=== PATIENT | female | born 1945 | race Caucasian/White ===

== ENCOUNTER 2022-06-10 14:13 | Outpatient (CLI) | payer OTHER, SELFPAY ==
--- NOTE | ~2022-06-10 | DEXA_ITS ---
Bone Density Report Name: NOLBERTO WALSH Age: 77 Sex: Female Ethnicity: White Date of : 1945 Indication: postmenopausal; screening for osteoporosis; height loss; hysterectomy; Referring Provider: VICKIE PALUMBO Study: Bone densitometry was performed. Exam Date: June 10, 2022 Accession number: [id number] Bone Density: Region BMD T-score Z-score Classification AP Spine(L1-L4) 1.323 2.5 5.0 Normal Femoral Neck (Left) 0.837 -0.1 2.0 Normal Total Hip (Left) 0.976 0.3 2.1 Normal Femoral Neck (Right) 0.893 0.4 2.5 Normal Total Hip (Right) 1.007 0.5 2.4 Normal Total Hip Mean 0.992 0.4 2.3 Normal World Health Organization criteria for BMD impression classify patients as: Normal (T-score at or above -1.0), Osteopenia (T-score between -1.0 and -2.5), or Osteoporosis (T-score at or below -2.5). 10-year Fracture Risk: FRAX not reported because: All T-scores for Spine Total, Hip Total, Femoral Neck at or above -1.0 Clinical Information Provided by Patient: Has the following medical conditions: Hysterectomy Patient maximum height was 69 Menopause Age: 46 No regular weight bearing exercise Onset of menses at age 14 Number of children 1 Impression: The patient has normal bone mass. Discussion: BONE DENSITY IS ABOVE THE MINIMUM DESIRABLE LEVEL AT ALL SKELETAL SITES TESTED. This patient?s bone mineral density is above the minimum desirable level (T-score -1.0 or better) at all sites measured. The patient should follow a healthful lifestyle (good nutrition with adequate calcium and vitamin D, and appropriate weight-bearing exercise). Follow-Up: Consider repeating this study in 5 years or sooner if there is some new clinical indication. Reported by: TIANNA on 06/10/2022 2:46:00 PM. Reviewed, dictated and finalized at location [facility]
== END 2022-06-10 14:14 | disposition home or self-care (01) ==
LOC: ANHBRCTR 14:14
PROVIDERS: PCP Family Medicine; Visit Provider Family Medicine
DX: Z78.0 Asymptomatic menopausal state (principal)
CPT/HCPCS: 77080

== ENCOUNTER 2022-12-03 09:17 | Outpatient (CLI) | payer OTHER, SELFPAY ==
--- NOTE | ~2022-12-03 | XR_ITS ---
Lumbosacral Spine: AP and lateral views Clinical History: Pain Findings: There is mild levoscoliosis of the lumbar spine. No fracture identified. 5 mm retrolisthesi s of T12 over L1 noted. There is a 5 mm anterolisthesis of L4 over L5. There is moderate to advanced degenerative disc narrowing throughout the lumbar spine. There is moderate to advanced facet joint ar thropathy throughout the lumbar spine. The sacroiliac joints are normally outlined. Impression: Advanced degenerative spondylosis, as above. 5 mm retrolisthesis of T12 over L1. 5 mm anterolisthesis of L4 over L5. Reviewed, dictated and finalized at location M. Impression: Advanced degenerative spondylosis, as above. 5 mm retrolisthesis of T12 over L1. 5 mm anterolisthesis of L4 over L5.
== END 2022-12-03 09:18 | disposition home or self-care (01) ==
PROVIDERS: PCP Family Medicine; Visit Provider Family Medicine
DX: M47.816 Spondylosis without myelopathy or radiculopathy, lumbar region (principal)
CPT/HCPCS: 72100

== ENCOUNTER 2025-05-28 09:39 | Outpatient (CLI) | payer OTHER, SELFPAY ==
--- OUTSIDE RECORDS SUMMARY | 2024-03-28 07:34 | XMS_ITS ---
Author Organization [facility], Address [address] [address] Care Team Providers Care Reconditioning Associate Name Role Phone Ez Rosales Primary Care Provider Buck Street [facility] [phone] REASON FOR VISIT Rx for after surgery MEDICATIONS Medication SIG (Take, Route, Frequency, Duration) Notes Start Date End Date Status HYDROcodone-Acetaminophen 7.5-325 MG 1 tablet as needed Orally every 4-6 hrs for 7 days 03/28/2024 Active Encounters Encounter Location Date Provider Diagnosis [facility] [address] [address] 03/28/2024 Buck Botello PLAN OF TREATMENT Medication Medication Name Sig Start Date Stop Date Notes HYDROcodone-Acetaminophen 7.5-325 MG 1 tablet as needed Orally every 4-6 hrs for 7 days 03/28/2024
--- OUTSIDE RECORDS SUMMARY | 2024-03-31 09:34 | XMS_ITS ---
Author Organization [facility], [facility] Address [address] [facility] [address] [place] [address] Care Team Providers Care Fac Engineer Name Role Phone Ez Rosales Primary Care Provider Buck Street Unavailable [phone] Encounters Encounter Location Date Provider Diagnosis [facility], [address] [facility] [address] [place] [address] 03/31/2024 Buck Botello PLAN OF TREATMENT No Information
--- OUTSIDE RECORDS SUMMARY | 2024-04-03 02:36 | XMS_ITS ---
Author Organization [facility], [place] Address [address] [facility] [address] [place] [address] Care Team Providers Care English Composition Teacher Name Role Phone Ez Rosales Primary Care Provider Buck Street Unavailable [phone] REASON FOR VISIT Call back Encounters Encounter Location Date Provider Diagnosis [facility] [address] [facility] [address] [place] [address] 04/03/2024 Buck Botello PLAN OF TREATMENT No Information
--- OUTSIDE RECORDS SUMMARY | 2024-04-04 02:41 | XMS_ITS ---
Author Organization [facility], Address [address] [address] Care Team Providers Care Planning Technician Name Role Phone Ez Rosales Primary Care Provider Buck Street [facility] [phone] REASON FOR VISIT Rx MEDICATIONS Medication SIG (Take, Route, Frequency, Duration) Notes Start Date End Date Status HYDROcodone-Acetaminophen 7.5-325 MG 1 tablet as needed Orally every 4-6 hrs for 7 days 04/04/2024 Active Encounters Encounter Location Date Provider Diagnosis [facility] [address] [facility] [address] [place] [address] 04/04/2024 Buck Botello PLAN OF TREATMENT Medication Medication Name Sig Start Date Stop Date Notes HYDROcodone-Acetaminophen 7.5-325 MG 1 tablet as needed Orally every 4-6 hrs for 7 days 04/04/2024
--- OUTSIDE RECORDS SUMMARY | 2024-04-07 03:40 | XMS_ITS ---
Author Organization [facility], [place] Address [address] [address] [place] [address] Care Team Providers Care Manager Control Name Role Phone Ez Rosales Primary Care Provider Buck Street Unavailable [phone] ALLERGIES No Known Allergies RESULTS Component Value Reference Range Notes X ray : Lumbar Spine 3 views , AP, Lateral, Spot Reviewed date:04/07/2024 10:14:40 AM Interpretation:[id number] Performing Lab: Notes/Report: 938 REASON FOR REFERRAL Reason DIAGNOSES: s/p L2-4 LDL's, L4-5 wide decomp, L4-5 TLIF 3 times per week for 3 weeks eval and treat, exercise, modalities per therapist's discretion; HEP Referral [facility] Referring Provider First Name Buck Referring Provider Last Name Rosmery Referring Provider Speciality Orthopedic Surgery Referred Provider Specialty Physical The rapy Referral Priority Routine REASON FOR VISIT postop MEDICATIONS Medication SIG (Take, Route, Frequency, Duration) Notes Start Date End Date Status Aleve prn Not-Taking Advil Not-Taking Losartan Potassium A ctive Eye Drops vitamin Active Centrum Silver Activ e HYDROcodone-Acetaminoph en 5-325 MG 1 tablet as needed Orally every 4-6 hrs for 7 days 04/07/2024 Active VITAL SIGNS BMI 33.96 kg/m2 04/07/2024 Height 69 in 04/07/2024 Temperature 98.4 degrees Fahrenheit 04/07/20 24 Weight 230 lbs 04/07/2024 Encounters Encounter Location Date Provider Diagnosis [facility], [address] [facility] [address] [place] [address] 04/07/2024 Buck Botello Aftercare following surgery of the musculoskeletal system, NEC Z47.89 ; Arthrodesis status Z98.1 and Other low back pain M54.59 ASSESSMENTS Encounter Date Diagnosis Assessment Notes Treatment Notes Treatment Clinical Notes Section Notes 04/07/2024 Aftercare following surgery of the musculoskeletal system, NEC (ICD-10 - Z47.89) <b>IMPRESSION:</b > S/P LDL's and fusion <b>PLAN:</b> It is my recommendation that the patient switch to using a cane and ambulate as much as possible. She can also use a treadmill, elliptical, or stationary bike to improve strength and endurance. She was encouraged to walk every day. She will start outpatient PT to advance strength and conditioning. She will continue on [place] 5/325, but I explained to her this may be her last prescription of this medication. She will follow-up in 4-6 weeks. [facility] 04/07/2024 Arthrodesis status (ICD-10 - Z98.1) <b>IMPRESSION:</b > S/P LDL's and fusion <b>PLAN:</b> It is my recommendation that the patient switch to using a cane and ambulate as much as possible. She can also use a treadmill, elliptical, or stationary bike to improve strength and endurance. She was encouraged to walk every day. She will start outpatient PT to advance strength and conditioning. She will continue on [place] 5/325, but I explained to her this may be her last prescription of this medication. She will follow-up in 4-6 weeks. [facility] 04/07/2024 Other low back pain (ICD-10 - M54.59) <b>IMPRESSION:</b > S/P LDL's and fusion <b>PLAN:</b> It is my recommendation that the patient switch to using a cane and ambulate as much as possible. She can also use a treadmill, elliptical, or stationary bike to improve strength and endurance. She was encouraged to walk every day. She will start outpatient PT to advance strength and conditioning. She will continue on [place] 5/325, but I explained to her this may be her last prescription of this medication. She will follow-up in 4-6 weeks. [facility] PLAN OF TREATMENT Medication Medication Name Sig Start Date Stop Date Notes HYDROcodone-Acetaminophen 5- 325 MG 1 tablet as needed Orally every 4-6 hrs for 7 days 04/07/2024 Referrals Referral Date Details DIAGNOSES: s/p L2-4 LDL's, L4-5 wide decomp, L4-5 TLIF 3 times per week for 3 weeks eval and treat, exercise, modalities per therapist's discretion; HEP Progress Notes * Examination Category Sub-Category Detail Notes Category Not es X-ray Interpretation Three v iews L-spine reveal satisfactory position of the pedicle screws, rods, implant at L4-5. Persisting scoliosis. No evidence of implant failure or dislodgement. Films are discussed with the patient and her . General Examination NEUROLOGIC: LE neurologi c exam reveals symmetric DTR's, intact sensation, 5+/5+ motor strength MUSCULOSKELETAL: Back incision clean and dry, no erythema, no induration. Lumbar ROM reveals FF 90 degrees and EXT 30 degrees History and Physical Notes * HPI (History of Present Illness) Category Sub-Category Detail Notes Category Not es Lower back Juliann wilkerson presents for re-evaluation today, 04/07/2024. She is 10 days s/p LDL's from L2 to L5 with TLIF at L4-5. She reports that she is doing well. Her preoperative leg complaints have resolved. She c/o backache and stiffness. She reports that she doesn't think she needs the walker to ambulate. Consultation Request Notes Referral Date Referring Provider Referred Provider Not es 04/07/2024 Buck Botello , DIAGNOSES: s /p L2-4 LDL's, L4-5 wide decomp, L4-5 TLIF 3 times per week for 3 weeks eval and treat, exercise, modalities per therapist's discretion; HEP
--- OUTSIDE RECORDS SUMMARY | 2024-04-10 02:50 | XMS_ITS ---
Author Organization [facility], Address [address] [facility] [address] [place] [address] Care Team Providers Care Director Of Intercollegiate Athletics Name Role Phone Ez Rosales Primary Care Provider [address] [facility] [phone] MEDICATIONS Medication SIG (Take, Route, Frequency, Duration) Notes Start Date End Date Status HYDROcodone-Acetaminophen 5-325 MG 1 tablet as needed Orally every 4-6 hrs for 7 days 04/10/2024 Active Encounters Encounter Location Date Provider Diagnosis [facility] [address] [facility] [address] [place] [address] 04/10/2024 Buck Botello PLAN OF TREATMENT Medication Medication Name Sig Start Date Stop Date Notes HYDROcodone-Acetaminophen 5- 325 MG 1 tablet as needed Orally every 4-6 hrs for 7 days 04/10/2024
--- OUTSIDE RECORDS SUMMARY | 2024-04-19 05:02 | XMS_ITS ---
Author Organization [facility], Address [address] [address] Care Team Providers Care Manager Hospitality Name Role Phone Ez Rosales Primary Care Provider Buck Street [facility] [phone] REASON FOR VISIT Rx MEDICATIONS Medication SIG (Take, Route, Fr equency, Duration) Notes Start Date End Date Status traMADol HCl 50 MG 1 tablet as needed O rally every 4-6 hours for 7 days 04/19/2024 Active Encounters Encounter Location Date Provider Diagnosis [facility] [address] [facility] [address] [place] [address] 04/19/2024 Buck Botello PLAN OF TREATMENT Medication Medication Name Sig Start Date Stop Date Notes HYDROcodone-Acetaminophen 5- 325 MG 1 tablet as needed Orally every 4-6 hrs 04/10/2024 traMADol HCl 50 MG 1 tablet as needed O rally every 4-6 hours for 7 days 04/19/2024
--- OUTSIDE RECORDS SUMMARY | 2024-05-05 03:40 | XMS_ITS ---
Author Organization [facility], Address [address] [place] [address] Care Team Providers Care Research Test Engine Operator Name Role Phone Ez Rosales Primary Care Provider Buck Street Unavailable [phone] ALLERGIES No Known Allergies RESULTS Component Value Reference Range Notes X ray : Lumbar Spine 3 views , AP, Lateral, Spot Reviewed date:05/05/2024 12:05:41 PM Interpretation:[id number] Performing Lab: Notes/Report: 1048 REASON FOR VISIT postop MEDICATIONS Medication SIG (Take, Route, Frequency, Duration) Notes Start Date End Date Status Losartan Potassium A ctive Centrum Silver Activ e Aleve prn Not-Taking Advil Not-Taking traMADol HCl 50 MG 1 tablet as needed O rally every 4-6 hours for 7 days 04/19/2024 Not-T aking Eye Drops vitamin Active VITAL SIGNS BMI 33.96 kg/m2 05/05/2024 Height 69 in 05/05/2024 Weight 230 lbs 05/05/2024 Encounters Encounter Location Date Provider Diagnosis [facility], [address] [facility] [address] [place] [address] 05/05/2024 Buck Botello Orthopedic aftercare Z47.89 ; Arthrodesis status Z98.1 and Other low back pain M54.59 ASSESSMENTS Encounter Date Diagnosis Assessment Notes Treatment Notes Treatment Clinical Notes Section Notes 05/05/2024 Orthopedic aftercare (ICD-10 - Z47.89) <b>IMPRESSION:</b > S/P LDL's and fusion <b>PLAN:</b> It is my recommendation that the patient attend additional PT, advance her home exercises and walk as much as possible. She can perform weight training exercises with weights weighing 5 and 10 pounds. She will follow-up in 6 weeks. [place] 05/05/2024 Arthrodesis status (ICD-10 - Z98.1) <b>IMPRESSION:</b > S/P LDL's and fusion <b>PLAN:</b> It is my recommendation that the patient attend additional PT, advance her home exercises and walk as much as possible. She can perform weight training exercises with weights weighing 5 and 10 pounds. She will follow-up in 6 weeks. [place]/[facility] 05/05/2024 Other low back pain (ICD-10 - M54.59) <b>IMPRESSION:</b > S/P LDL's and fusion <b>PLAN:</b> It is my recommendation that the patient attend additional PT, advance her home exercises and walk as much as possible. She can perform weight training exercises with weights weighing 5 and 10 pounds. She will follow-up in 6 weeks. [place]/[facility] PLAN OF TREATMENT No Information Progress Notes * Examination Category Sub-Category Detail Notes Category Not es X-ray Interpretation Three v iews L-spine reveal a curvature to the left. Evidence of TLIF at L4-5. Screws are in good position. Satisfactory implant position. No evidence of extrusion of the implant. No subsidence. No implant failure. Films are discussed with the patient. General Examination GENERAL: She moves ab out the room without difficulty. She does not walk with a list/limp NECK: No tenderness to pal pation, no spasm NEUROLOGIC: LE neurologic exam r eveals 5+ motor strength and symmetric reflexes MUSCULOSKELETAL: Thoracic exam reveal s no tenderness to palpation, no spasm. Lumbar exam reveals a well-healed back incision, non-tender to touch. Lumbar ROM reveals FF 90 degrees, EXT 35 degrees, SB 45 degrees. She can heel and toe walk History and Physical Notes * HPI (History of Present Illness) Category Sub-Category Detail Notes Category Not es Lower back Juliann wilkerson presents for re-evaluation today, 05/05/2024. She is 5-1/2 weeks s/p LDL's from L2 to L5 with TLIF at L4-5. She reports that she has some difficulty with prolonged standing with some back pain and ache. She reports that she has some persisting weakness involving the bilateral LE's aggravated with prolonged standing and ambulation. She has been trying to walk.
--- OUTSIDE RECORDS SUMMARY | 2024-06-16 03:20 | XMS_ITS ---
Author Organization [facility], Address [address] [place] [address] Care Team Providers Care Construction Management Instructor Name Role Phone Ez Rosales Primary Care Provider Buck Street Unavailable [phone] ALLERGIES No Known Allergies RESULTS Component Value Reference Range Notes X ray : Lumbar Spine 3 views , Lateral, Flexion, Extension Reviewed date:06/16/2024 10:25:47 AM Interpretation:[id number] Performing Lab: Notes/Report: 922 REASON FOR VISIT Postop Lumbar MEDICATIONS Medication SIG (Take, Route, Frequency, Duration) Notes Start Date End Date Status Tylenol Active Eye Drops vitamin Active traMADol HCl 50 MG 1 tablet as needed O rally every 4-6 hours for 7 days 04/19/2024 Not-T aking Centrum Silver Activ e Losartan Potassium A ctive Meloxicam 15 MG 1 tablet once daily oral with food for 90 days 06/16/2024 Active VITAL SIGNS BMI 33.96 kg/m2 06/16/2024 Height 69 in 06/16/2024 Weight 230 lbs 06/16/2024 Encounters Encounter Location Date Provider Diagnosis [facility] [address] [facility] [address] [place] [address] 06/16/2024 Buck Botello Other low back pain M54.59 ; Scoliosis M41.9 ; Orthopedic aftercare Z47.89 and Arthrodesis status Z98.1 ASSESSMENTS Encounter Date Diagnosis Assessment Notes Treatment Notes Treatment Clinical Notes Section Notes 06/16/2024 Other low back pain (ICD-10 - M54.59) <b>IMPRESSION:</b > S/P LDL's and fusion Scoliosis Back pain <b>PLAN:</b> It is my recommendation that the patient start on Mobic 15 mg daily and Tylenol up to 3,000 mg daily. She will continue with her home exercises. She was strongly encouraged to join exercise classes, such as SilverSneakers. She will follow-up in 6 weeks. [facility] 06/16/2024 Scoliosis (ICD-10 - M41.9) <b>IMPRESSION:</b > S/P LDL's and fusion Scoliosis Back pain <b>PLAN:</b> It is my recommendation that the patient start on Mobic 15 mg daily and Tylenol up to 3,000 mg daily. She will continue with her home exercises. She was strongly encouraged to join exercise classes, such as SilverSneakers. She will follow-up in 6 weeks. [facility] 06/16/2024 Orthopedic aftercare (ICD-10 - Z47.89) <b>IMPRESSION:</b > S/P LDL's and fusion Scoliosis Back pain <b>PLAN:</b> It is my recommendation that the patient start on Mobic 15 mg daily and Tylenol up to 3,000 mg daily. She will continue with her home exercises. She was strongly encouraged to join exercise classes, such as SilverSneakers. She will follow-up in 6 weeks. [facility] 06/16/2024 Arthrodesis status (ICD-10 - Z98.1) <b>IMPRESSION:</b > S/P LDL's and fusion Scoliosis Back pain <b>PLAN:</b> It is my recommendation that the patient start on Mobic 15 mg daily and Tylenol up to 3,000 mg daily. She will continue with her home exercises. She was strongly encouraged to join exercise classes, such as SilverSneakers. She will follow-up in 6 weeks. [facility] PLAN OF TREATMENT Medication Medication Name Sig Start Date Stop Date Notes Meloxicam 15 MG 1 tablet once daily oral with food for 90 days 06/16/2024 Advil Aleve prn Progress Notes * Examination Category Sub-Category Detail Notes Category Not es X-ray Interpretation Three v iews L-spine reveal satisfactory position of the pedicle screws, rods, implants at L4-5. Fusion graft appears to be incorporating satisfactorily. Persisting scoliotic deformity measuring 20 degrees to the left. Degeneration at all adjacent levels. Films are discussed with the patient and her . General Examination GENERAL: She is exami gene in the presence of her . She moves about the room without difficulty. She does not walk with a list/limp NECK: No tenderness to pal pation, no spasm NEUROLOGIC: LE neurologic exam r eveals symmetric DTR's, intact sensation, 5+/5+ motor strength MUSCULOSKELETAL: Thoracic exam reveal s no tenderness to palpation, no spasm. Lumbar exam reveals a well-healed back incision, non-tender to touch. Lumbar ROM reveals FF 95 degrees, EXT 35 degrees, SB 45 degrees. She can heel and toe walk. L. gluteus exam reveals mild discomfort with deep palpation through the gluteus jude History and Physical Notes * HPI (History of Present Illness) Category Sub-Category Detail Notes Category Not es Lower back Juliannsa Natan wilkerson presents for re-evaluation today, 06/16/2024. She is 11-1/2 weeks s/p LDL's from L2 to L5 with TLIF at L4-5. She reports that she is doing better. She c/o intermittent pain involving the L. buttock and some stiffness in the morning. She is using no anti-inflammatory medication to moderate symptoms. She reports that she has a stationary bike at home and she uses it regularly. She does not walk much. She does not go to a gym or exercise classes. She finished PT, which helped.
--- OUTSIDE RECORDS SUMMARY | 2024-07-24 06:50 | XMS_ITS ---
Author Organization [facility], Address [address] [facility] [address] [address] Care Team Providers Care Aluminizer Name Role Phone Ez Rosales Primary Care Provider Buck Street Unavailable [phone] ALLERGIES No Known Allergies RESULTS Component Value Reference Range Notes X ray : Lumbar Spine 3 views , AP, Lateral, Spot Reviewed date:07/24/2024 02:29:00 PM Interpretation:140 Performing Lab: Notes/Report: 140 REASON FOR VISIT post op MEDICATIONS Medication SIG (Take, Route, Frequency, Duration) Notes Start Date End Date Status Centrum Silver Activ e Tylenol Active traMADol HCl 50 MG 1 tablet as needed O rally every 4-6 hours for 7 days 04/19/2024 Not-T aking Meloxicam 15 MG 1 tablet once daily oral with food for 90 days 06/16/2024 Active Losartan Potassium A ctive Eye Drops vitamin Active VITAL SIGNS BMI 33.96 kg/m2 07/24/2024 Height 69 in 07/24/2024 Weight 230 lbs 07/24/2024 Encounters Encounter Location Date Provider Diagnosis [facility], [address] [facility] [address] [address] 07/24/2024 Buck Botello Disc Degeneration, Lumbar Region with Leg Pain 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 Back pain. Disc degeneration. Scoliosis. Facet degenerative joint disease. <b>PLAN:</b> It is my recommendation the patient continue on meloxicam and Tylenol. She will advance home exercises. We will see her back in the office on a p.r.n. basis[place] [facility] [place] Facet degeneration of lumbar region (ICD-10 - M47.816) <b>IMPRESSION:</b > Status post lumbar decompressive laminectomy and fusion. Back pain. Disc degeneration. Scoliosis. Facet degenerative joint disease. <b>PLAN:</b> It is my recommendation the patient continue on meloxicam and Tylenol. She will advance home exercises. We will see her back in the office on a p.r.n. basis[place] [facility] [place]24 Scoliosis (ICD-10 - M41.9) <b>IMPRESSION:</b > Status post lumbar decompressive laminectomy and fusion. Back pain. Disc degeneration. Scoliosis. Facet degenerative joint disease. <b>PLAN:</b> It is my recommendation the patient continue on meloxicam and Tylenol. She will advance home exercises. We will see her back in the office on a p.r.n. basis. [facility] [place]24 Other low back pain (ICD-10 - M54.59) <b>IMPRESSION:</b > Status post lumbar decompressive laminectomy and fusion. Back pain. Disc degeneration. Scoliosis. Facet degenerative joint disease. <b>PLAN:</b> It is my recommendation the patient continue on meloxicam and Tylenol. She will advance home exercises. We will see her back in the office on a p.r.n. basis. [facility] [place] PLAN OF TREATMENT No Information Progress Notes * Examination Category Sub-Category Detail Notes Category Not es Plain X-ray Imaging Studies LUMBAR SPINE X-RAYS: Three view x-rays through th e lumbar spine are reviewed today and reveal evidence of mild scoliotic deformity to the left of the lower lumbar spine. Fusion with instrumentation L4-5. The fusion appears to be complete. Posterolateral, in addition, appears to be complete. No evidence of implant failure, screw loosening or dislodgement noted. The films are discussed with the patient General Examination GENERAL: Patient is a n alert and cooperative female who moves about the room without significant difficulty. She does not walk with a list or limp NECK: Exam reveals mild ky phosis. ROM of the cervical spine is reduced in extension. Spurling's test is negative HEART: Regular rate and rhy thm, Regular rate and rhythm LUNGS: Clear to auscultatio n bilaterally ABDOMEN: Normal, bowel sounds present, soft, nontender, nondistended NEUROLOGIC: Upper extremity neur ologic examination reveals symmetric DTR's, intact sensation, 5+/5+ motor strength. Dawn's sign negative. Lower extremity neurologic examination reveals symmetric DTR's, intact sensation, 5+/5+ motor strength. SLR testing negative. No clonus, negative Babinski's sign involving the lower extremities SKIN: There are no skin le sions or rashes, no evidence of herpes zoster MUSCULOSKELETAL: Thoracic exam reveal s no tenderness to palpation. No spasm. Lumbar exam reveals a well-healed back incision, nontender to the touch. ROM of the lumbar spine reveals forward flexion to 95 degrees, extension to 35 degrees, side-bending to 45 degrees. She can heel and toe walk PSYCHIATRIC: Mood and affect appe ar normal HEENT: No masses, pupils ar e equally round and react to light and accommodation, the extraocular movements are intact, no nasal drainage, no lymphadenopathy JOINTS: Hip log roll testing negative. Hip ROM full. FABERE test negative History and Physical Notes * HPI (History of Present Illness) Category Sub-Category Detail Notes Category Not es Lower back Juliann Mane presents for reevaluation today, 07/24/2024. She is almost 17 weeks status post lumbar decompressive laminectomies L2 to L4 with TLIF L4-5. The patient reports she is doing better. She continues on meloxicam and Tylenol. She is exercising. She goes to the [facility] regularly and has a athletic trainer who assists her in improving her strength and endurance. The patient reports her capacity to ambulate long distances has improved. Her preoperative back and leg complaints have resolved. She complains of only occasional aches with more vigorous activities
--- NOTE | 2025-05-28 10:05 | ECHO_ITS ---
Patient Info Name: Juliann Mane Age: 80 years : 1945 Gender: Female Ht: 68 in Wt: 220 lbs BSA: 2.22 m2 BP: 157 / 91 mmHg Technical Quality: Fair Exam Date: 05/28/2025 10:07 AM Patient Status: O Admit Date: 05/28/2025 Exam Type: CA echo dop bubble study w con Complete two-dimentional, color flow and Doppler transthoracic echocardiogram is performed with agitated saline and with contrast to opacify the left ventricle and to improve the delineation of the left ventricle endocardial borders. Printer Maintainer: Cristina Starr Attending Provider: Shira Rubi Contrast/Agitated Saline Contrast/Ag. Saline: Agitated Saline Amount: 20.00 ml New IV Access: Right and Antecubital Space Contrast/Ag. Saline: Definity Amount: 2.00 ml Site Condition: IV removed, Site dressing applied and No extravasation Summary 1. Definity contrast administered improved wall motion interpretation. 2. Left ventricular chamber dimension is normal. 3. Left ventricular systolic function is normal, estimated at 60-65. 4. The left ventricular diastolic function is grade I diastolic dysfunction. 5. E/e' 11 is mildly elevated. 6. Left atrial chamber dimension is mildly enlarged. 7. There is moderate aortic valve sclerosis. 8. There is mild aortic valve stenosis with a peak velocity of 218 cm/s, mean gradient of 11 mmHg, and aortic valve area of 1.5 cm2. 9. There is trace aortic valve regurgitation. 10. There is trace mitral valve regurgitation. 11. There is trace tricuspid valve regurgitation. 12. No pulmonary hypertension, estimated pulmonary arterial systolic pressure is 27 mmHg. Left Ventricle E/e' 11 is mildly elevated. Left ventricular chamber dimension is normal. Left ventricular systolic function is normal, estimated at 60-65. The left ventricular diastolic function is grade I diastolic dysfunction. Definity contrast administered improved wall motion interpretation. Right Ventricle Right ventricular chamber dimension is normal. Right ventricular systolic function is normal. Left Atria Left atrial chamber dimension is mildly enlarged. Right Atria Right atrial chamber dimension is normal. Atrial Septum Intact interatrial septum visualized by 2D and agitated saline imaging. Agitated saline injection with and without valsalva maneuver opacified right side cardiac chambers without shunt to left side cardiac chambers. Aortic Valve The aortic valve is trileaflet. There is moderate aortic valve sclerosis. There is mild aortic valve stenosis with a peak velocity of 218 cm/s, mean gradient of 11 mmHg, and aortic valve area of 1.5 cm2. There is trace aortic valve regurgitation. Pulmonic Valve There is no pulmonic regurgitation. Mitral Valve There is no mitral valve stenosis. There is trace mitral valve regurgitation. Tricuspid Valve There is trace tricuspid valve regurgitation. No pulmonary hypertension, estimated pulmonary arterial systolic pressure is 27 mmHg. Pericardium/Pleural There is no pericardial effusion. Inferior Vena Cava Normal inferior vena cava with >50% collapse upon inspiration consistent with normal right atrial pressure, 5 mmHg. Aorta The aortic root size at the sinus of Valsalva is normal. Left Ventricular Outflow Tract Name Value Normal LVOT 2D LVOT Diameter 2.0 cm LVOT Doppler LVOT Peak Velocity 99 cm/s LVOT Peak Gradient 3 mmHg LVOT Mean Gradient 2 mmHg LVOT VTI 23 cm LVOT VTI/AV VTI Ratio 0.4 LVOT Stroke Volume 74 ml LVOT CO 5.1 l/min LVOT CI 2.3 l/min/m2 Pulmonic Valve Name Value Normal RVOT Doppler RVOT Peak Velocity 87 cm/s RVOT Peak Gradient 3 mmHg PV Doppler PV Peak Velocity 121 cm/s PV Peak Gradient 6 mmHg Mitral Valve Name Value Normal MV Diastolic Function MV E Peak Velocity 64 cm/s MV A Peak Velocity 112 cm/s MV E/A 0.6 MV Decel Time (PW) 155 ms Tricuspid Valve Name Value Normal TV Regurgitation Doppler TR Peak Velocity 237 cm/s TR Peak Gradient 22 mmHg Estimated PAP/RSVP RA Pressure 5 mmHg <=5 PA Systolic Pressure 27 mmHg <36 RV Systolic Pressure 27 mmHg <36 Aorta Name Value Normal Ascending Aorta Ao Root Diameter (MM) 3.1 cm Ao Root Diam Index (MM) 1.4 cm/m2 Aortic Valve Name Value Normal AV Doppler AV Peak Velocity 218 cm/s AV Peak Gradient 16 mmHg AV Mean Gradient 11 mmHg AV VTI 50 cm AV Area (Cont Eq VTI) 1.5 cm2 >=3.0 AV Area (Cont Eq Hasmukh) 1.5 cm2 AV DI (Hasmukh) 0.45 AV Regurgitation 2D LVOT Area 3.3 cm2 Ventricles Name Value Normal LV Dimensions 2D/MM IVS Diastolic Thickness (2D) 0.8 cm 0.6-1.0 IVS Diastole Thickness (MM) 1.2 cm 0.6-0.9 LVID Diastole (2D) 4.9 cm 3.8-5.2 LVID Diastole (MM) 6.3 cm 3.8-5.2 LVIW Diastolic Thickness (2D) 1.0 cm 0.6-0.9 LVIW Diastolic Thickness (MM) 0.9 cm 0.6-0.9 LVID Systole (2D) 3.2 cm 2.2-3.5 LVID Systole (MM) 4.0 cm 2.2-3.5 LVOT Diameter 2.0 cm LV Mass (2D Cubed) 157.94 g 67.00-162.00 LV Mass Index (2D Cubed) 71 g/m2 43-95 Relative Wall Thickness (2D) 0.41 <=0.42 LV Mass (MM Cubed) 278.35 g 67.00-162.00 LV Mass Index (MM Cubed) 125 g/m2 43-95 Relative Wall Thickness (MM) 0.29 LV Fractional Shortening/Ejection Fraction 2D/MM LV Fractional Shortening (2D) 34 % 27-45 LV Fractional Shortening (MM) 36 % 27-45 LV EF (MM Teichholz) 64 % LV EF (2D Teichholz) 63 % LV Diastolic Volume (4C MOD) 106 ml LV EF (4C MOD) 60 % LV Diastolic Volume (2C MOD) 122 ml LV EF (2C MOD) 56 % LV Diastolic Volume (BP MOD) 113 ml 46-106 LV Diastolic Volume Index (BP MOD) 51 ml/m2 29-61 LV Systolic Volume (BP MOD) 49 ml 14-42 LV Systolic Volume Index (BP MOD) 22 ml/m2 8-24 LV EF (BP MOD) 57 % 54-74 LV Diastolic Length (4C) 8.2 cm LV Systolic Length (4C) 6.3 cm LV Stroke Volume (4C MOD) 63 ml Atria Name Value Normal LA Dimensions LA Dimension (MM) 4.2 cm 2.7-3.8 LA Volume (4C A-L) 72 ml LA Volume (BP A-L) 69 ml RA Dimensions RA Systolic Major [place] Length (4C) 4.9 cm 2.2-2.8 RA Area (4C) 15.8 cm2 <=18.0 Report Signatures
--- OUTSIDE RECORDS SUMMARY | 2025-05-28 10:29 | XMS_ITS | Encounter Summary ---
Author Organization [facility] Address 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
--- OUTSIDE RECORDS SUMMARY | 2025-05-28 10:29 | XMS_ITS | Encounter Summary ---
Author Organization [facility] Address [address] [place] [address] Care Team Providers Care Patent Prosecution Paralegal Name Role Phone Ez Rosales MD Primary Care Provider [phone] Encounter Details Date Type Department Care Team (Latest Contact Info) Description 09/09/2006 Outpatient Historical [facility] GARETT Combs Jr., Yaritza Angel MD NO ADDRESS ON FILE Other Screening Mammogram (Primary Dx) Social History Tobacco Use Types Packs/Day Years Used Date Smoking Tobacco: Never Assessed Comments Unknown Sex and Gender Information Value Date Recorded Sex Assigned at Not on file 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
--- OUTSIDE RECORDS SUMMARY | 2025-05-28 10:29 | XMS_ITS | Encounter Summary ---
Author Organization [facility] Address [address] [place] [address] Care Team Providers Care Flash Developer Name Role Phone Ez Rosales MD Primary Care Provider [phone] Encounter Details Date Type Department Care Team (Latest Contact Info) Description 10/01/2006 Outpatient Historical [facility] GARETT Combs Jr., Yaritza Angel MD NO ADDRESS ON FILE Other Follow-Up Examination (Primary Dx) Social History Tobacco Use Types Packs/Day Years Used Date Smoking Tobacco: Never Assessed Comments Unknown Sex and Gender Information Value Date Recorded Sex Assigned at Not on file Legal Sex Female 4:53 AM CATH LAB TECH Gender Identity Not on file Sexual Orientation Not on file documented as of this encounter Plan of Treatment Not on file documented as of this encounter Visit Diagnoses Diagnosis Other follow-up examination(V67.59)- Primary Other follow-up examination documented in this encounter Care Teams Flash Developer Relationship Specialty Start Date End Date Ez Rosales MD PCP - General Family Practice 05/09/12 documented as of this encounter
--- OUTSIDE RECORDS SUMMARY | 2025-05-28 10:29 | XMS_ITS | Encounter Summary ---
Author Organization [facility] Address 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
--- OUTSIDE RECORDS SUMMARY | 2025-05-28 10:29 | XMS_ITS | Clinical Summary ---
Author Organization [facility] Address [address] [place] [address] Care Team Providers Care Sales Performance Analyst Name Role Phone Ez Rosales MD Primary Care Provider Allergies Active Allergy Reactions Criticality Noted Date Comments Enzo Inhibitors Cough Low Medications losartan (COZAAR) 25 mg tabletIndicatio ns:hypertension Take 25 mg by mouth every morning. 9 Active MULTIVITAMIN ORAL Take 1 tablet by mouth every morning. Active carboxymethylce llulose sodium (REFRESH CELLUVISC OPHT) Administer 1 drop into affected eye(s) daily as needed. Active acetaminophen (TYLENOL) 325 mg tabletIndicatio ns:Pain Take 2 tablets (650 mg total) by mouth every 6 (six) hours as needed for pain. 100 tablet 1 9 Active aspirin 325 mg enteric coated tabletIndicatio ns:Deep Vein Thrombosis Prevention Take 1 tablet (325 mg total) by mouth 2 (two) times a day. Take for 2 weeks. 28 tablet 9 Active docusate sodium (COLACE) 100 mg capsuleIndicati ons:constipatio n Take 1 capsule (100 mg total) by mouth 2 (two) times a day. HOLD if having diarrhea or loose stools. 30 capsule 1 9 Active gabapentin (NEURONTIN) 300 mg capsule Take 1 capsule (300 mg total) by mouth 3 (three) times a day 90 capsule 9 Active amoxicillin (amoxicillin) 500 mg tablet/capsuleI ndications:Prop hylaxis, Medical TAKE 4 CAPSULES BY MOUTH 1 HOUR PRIOR TO DENTAL PROCEDURE 4 tablet/capsul e 2 9 Active Active Problems Problem Noted Date Diagnosed Date Class 1 obesity with body ma ss index (BMI) of 33.0 to 33.9 in adult 09/20/2018 Right shoulder pain 09/12/2018 Overview (09/12/2018): Added automatically from request for surgery [id number] Hypertension 09/24/2014 Overview (10/29/2016): HBP Acute postoperative pain Status post total replacement of right shoulder Arthropathy Surgical History Surgery Date Site/Laterality Comments ACROMIOPLASTY Right REPLACEMENT UNICONDYLAR JOINT KNEE 02/21/2018 Left HYSTERECTOMY 07/26/2000 - 07/25/2001 COLONOSCOPY 07/26/2012 - 07/25/2013 EYE SURGERY Bilateral cataract removal; 9 and 12 years ago Medical History Medical History Date Comments Osteoarthritis HTN (hypertension) Family History Medical History Relation Name Comments Other Other 1 No family histo ry of Cancer, breast; Other Other 2 No family histo ry of Cancer, cervical; Other Other 3 No family histo ry of Cancer, colon; Other Other 4 No family histo ry of Cancer, ovarian; Anesthesia problems Neg Hx Relation Name Status Comments Other 1 Other 2 Other 3 Other 4 Social History Tobacco Use Types Packs/Day Years Used Date Smoking Tobacco: Never Smokeless Tobacco: Never Alcohol Use Standard Drinks/Week Comments Yes 0 (1 standard drink = 0.6 oz pur e alcohol) rare Comments No Sex and Gender Information Value Date Recorded Sex Assigned at Not on file Legal Sex Female 3:34 AM CPR INSTRUCTOR Gender Identity Not on file Sexual Orientation Not on file Last Filed Vital Signs Vital Sign Reading Time Taken Comments Blood Pressure 131/86 09/22/2018 11:46 AM CPR INSTRUCTOR Pulse 71 09/22/2018 11:46 AM CPR INSTRUCTOR Temperature 37.1 C (98.8 F) 09/22/2018 11:46 AM CPR INSTRUCTOR Respiratory Rate 18 09/22/2018 11:46 AM CPR INSTRUCTOR Oxygen Saturation 94% 09/22/2018 11:46 AM CPR INSTRUCTOR Inhaled Oxygen Concentration - - Weight 99.8 kg (220 lb) 09/21/2018 7:19 AM CPR INSTRUCTOR Height 175.3 cm (5' 9) 09/21/2018 7:19 AM CPR INSTRUCTOR Body Mass Index 32.49 09/21/2018 7:19 AM CPR INSTRUCTOR Plan of Treatment Health Maintenance Due Date Last Done Comments Depression Screening 1946 Fall Risk Assessment 1945 Hepatitis C Screening 1945 Osteoporosis Screening-Bone Density Scan 1945 DTaP/Tdap/Td Vaccine (1 - Tdap) 1957 Hepatitis B Screening 1964 Pneumococcal vaccine 65+ (1 of 1 - PCV) 1996 Zoster Vaccine (1 of 2) 1996 Well Visit 65+ 2011 Covid-19 Vaccine (3 - 2024-2 6 season) 2025 10/29/2020, 10/07/2020 Influenza Vaccine (#1) 2025 Breast Cancer Screening-Mammogram Discontinued 10/29/2023, 06/11/2021, 01/24/2019, Additional history exists Medical Devices Implanted Type Area Ship'S Engineer Device Identifier Shelf Expiration Date Model / Serial / Lot [employer] 6191-1-010 Simplex P Radiopaque Full Dose Cement Bone Sterile - [id number] Implanted:Qty: 1 on 09/21/2018 by Jaspreet Zayas MD at [facility] Right: Shoulder [employer] 12/23/2020 6191-1-010 / / [id number] [employer] [id number] Metaglene +15mm Long Peg Fixation - [id number] Implanted:Qty: 1 on 09/21/2018 by Jaspreet Zayas MD at [facility] Right: Shoulder [employer] [id number] 09/22/2022 [id number] / / [employer] [id number] Delta Xtend 4.5mm 42mm Lock Shoulder Glenoid Screw Bone Metaglene - [id number] Implanted:Qty: 1 on 09/21/2018 by Jaspreet Zayas MD at [facility] Right: Shoulder [employer] [id number] 01/13/2023 [id number] / / [employer] [id number] Delta Xtend 4.5mm 36mm Lock Shoulder Glenoid Screw Bone Metaglene - [id number] Implanted:Qty: 1 on 09/21/2018 by Jaspreet Zayas MD at [facility] Right: Shoulder [employer] [id number] 01/22/2023 [id number] / / [employer] [id number] Delta Xtend 38mm Glenosphere Shoulder Eccentric Component Glenoid Latex Free - [id number] Implanted:Qty: 1 on 09/21/2018 by Jaspreet Zayas MD at [facility] Right: Shoulder [employer] [id number] 04/24/2023 [id number] / / [employer] [id number] Delta Xtend Cementless Modular Shoulder Right Epiphysis 155d 1 Latex Free - [id number] Implanted:Qty: 1 on 09/21/2018 by Jaspreet Zyaas MD at [facility] Right: Shoulder [employer] [id number] 03/25/2023 [id number] / / [employer] [id number] Delta Xtend 10mm Cementless Modular Shoulder Stem Humeral Ortega Latex Free - [id number] Implanted:Qty: 1 on 09/21/2018 by Jaspreet Zayas MD at [facility] Right: Shoulder [employer] [id number] 12/23/2022 [id number] / / [employer] [id number] Delta Xtend 38mm Shoulder +6mm Standard Cup Humeral Polyethylene Latex Free - [id number] Implanted:Qty: 1 on 09/21/2018 by Jaspreet Zayas MD at [facility] Right: Shoulder [employer] [id number] 04/24/2023 [id number] / / Procedures Procedure Name Priority Date/Time Associated Diagnosis Comments SCREENING MAMMOGRAM BILATERAL W TIMOTHY Schedule Routine, Read Routine (OP Routine) 10/29/2023 10:38 AM CDT Screening mammogram, encounter for from Last 3 Months or Most Recently Relevant to Health Maintenance Results * Screening Mammogram Bilateral W Timothy (10/29/2023 10:38 AM CDT) Anatomical Region Laterality Modality Breast Bilateral Mammography Narrative 11/01/2023 7:11 AM CDT Examination: Screening Mammogram Bilateral W Timothy: 10/29/23 Clinical: Screening mammogram, encounter for. Prior Study Comparisons: Comparison was made to the prior available relevant studies at the time of interpretation. Findings: Bilateral No significant masses, malignant type calcifications, skin thickening, nipple retraction, or significant lymphadenopathy is noted in either breast. The CAD review showed no significant findings. The breasts have scattered areas of fibroglandular density. The patient will be notified of results by letter. Impression: BI-RADS ATLAS category (overall): 2 - Benign There is no mammographic evidence of malignancy. Routine Screening Mammogram in 1 Yr is recommended for bilateral Overall Assessment: 2 - Benign us Self Screening Mammogram IMG MAMMO PROCEDURES Fi nal Result from Last 3 Months or Most Recently Relevant to Health Maintenance Insurance [facility] [place] Advance Directives For more information, please contact: [phone] * Full Code (Latest Code Status on File) Date Activated Date Inactivated Comments 09/21/2018 1:32 PM 09/22/2018 6:23 PM Care Teams Sales Performance Analyst Relationship Specialty Start Date End Date Ez Rosales MD [address] [facility] [address] [place] [address] PCP - General 09/24/14
--- OUTSIDE RECORDS SUMMARY | 2025-05-28 10:29 | XMS_ITS | Clinical Summary ---
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 Gender Identity Not on file Sexual Orientation Not on file Occupation Industry Job Start Date Job End Date Not on file Not on file Not on file Not on file Plan of Treatment Health Maintenance Due Date Last Done Comments DTAP/TDAP/TD VACCINES (1 - Tdap) 1965 PNEUMOCOCCAL VACCINE 50+ YEARS (1 of 1 - PCV) 05/18/19 96 ZOSTER VACCINE (1 of 2) 1996 OSTEOPOROSIS SCREENING 2011 RSV VACCINE (60+ or ) (1 - 1-dose 75+ series) 2021 INFLUENZA VACCINE (#1) 2025 Insurance [facility] [id number] Care Teams Dance Director Relationship Specialty Start Date End Date Ez Rosales MD PCP - General Family Practice 05/09/12
--- OUTSIDE RECORDS SUMMARY | 2025-05-28 10:30 | XMS_ITS | Encounter Summary ---
Author Organization [facility] Address [address] [place] [address] Care Team Providers Care Job Foreman Name Role Phone Ez Rosales MD Primary Care Provider [phone] Encounter Details Date Type Department Care Team (Late st Contact Info) Description 02/01/2003 Outpatient Historical [facility] ([facility]iology[facility]) [address] 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
--- OUTSIDE RECORDS SUMMARY | 2025-05-28 10:30 | XMS_ITS | Patient Health Record ---
Author Organization [facility], Address [address] [place] [address] Care Team Providers Care Dam Attendant Name Role Phone Ez Rosales Primary Care Provider [address] [phone] ALLERGIES No Known Allergies RESULTS Component Value Reference Range Notes X ray : Lumbar Spine 3 views , Lateral, Flexion, Extension Reviewed date:06/16/2024 10:25:47 AM Interpretation:922 Performing Lab: Notes/Report: 922 X ray : Lumbar Spine 3 views , AP, Lateral, Spot Reviewed date:07/24/2024 02:29:00 PM Interpretation:140 Performing Lab: Notes/Report: 140 REASON FOR REFERRAL No Information MEDICATIONS Medication SIG (Take, Route, Frequency, Duration) Notes Start Date End Date Status Centrum Silver Activ e Eye Drops vitamin Active Tylenol Active traMADol HCl 50 MG 1 tablet as needed O rally every 4-6 hours for 7 days 04/19/2024 Not-T aking Meloxicam 15 MG 1 tablet once daily oral with food for 90 days 06/16/2024 Active Losartan Potassium A ctive PROBLEMS Problem Type ICD Code Onset Dates Problem Status W/U Status Risk SNOMED Code Notes Problem Spondylolisthes is, lumbar region (M43.16) Active confirmed Acquired spondylolisthesis (901797088) 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 Lumbosacral spondylosis without myelopathy (19672145) Problem Scoliosis (M41.9) Active confirmed Scoliosis (846784096) Problem DDD (degenerative disc disease), lumbar (M51.36) Active confirmed Degenerative disc disease (74935494) VITAL SIGNS Height 69 in 07/24/2024 Weight 230 lbs 07/24/2024 BMI 33.96 kg/m2 07/24/2024 Encounters Encounter Location Date Provider Diagnosis [facility], [address] [place] [address] 06/16/2024 Buck Botello Other low back pain M54.59 ; Scoliosis M41.9 ; Orthopedic aftercare Z47.89 and Arthrodesis status Z98.1 [facility], [address] [place] [address] 07/24/2024 Buck Botello Disc Degeneration, Lumbar Region [...] encouraged to join exercise classes, such as [employer]. She will follow-up in 6 weeks. FPC/clm 07/24/2024 Disc Degeneration, Lumbar Region with Leg Pain (ICD-10 - M51.361) <b>IMPRESSION:</b > Status post lumbar decompressive laminectomy and fusion. Back pain. Disc degeneration. Scoliosis. Facet degenerative joint disease. <b>PLAN:</b> It is my recommendation the patient continue on meloxicam and Tylenol. She will advance home exercises. We will see her back in the office on a p.r.n. basis. FPC/cp 06/16/2024 Scoliosis (ICD-10 - M41.9) <b>IMPRESSION:</b > S/P LDL's and fusion Scoliosis Back pain <b>PLAN:</b> It is my recommendation that the patient start on Mobic 15 mg daily and Tylenol up to 3,000 mg daily. She will continue with her home exercises. She was strongly encouraged to join exercise classes, such as [employer]. She will follow-up in 6 weeks. [facility] 07/24/2024 Facet degeneration of lumbar region (ICD-10 - M47.816) <b>IMPRESSION:</b > Status post lumbar decompressive laminectomy and fusion. Back pain. Disc degeneration. Scoliosis. Facet degenerative joint disease. <b>PLAN:</b> It is my recommendation the patient continue on meloxicam and Tylenol. She will advance home exercises. We will see her back in the office on a p.r.n. basis. FPC/ 06/16/2024 Orthopedic aftercare (ICD-10 - Z47.89) <b>IMPRESSION:</b > S/P LDL's and fusion Scoliosis Back pain <b>PLAN:</b> It is my recommendation that the patient start on Mobic 15 mg daily and Tylenol up to 3,000 mg daily. She will continue with her home exercises. She was strongly encouraged to join exercise classes, such as [employer]. She will follow-up in 6 weeks. [facility] 07/24/2024 Scoliosis (ICD-10 - M41.9) <b>IMPRESSION:</b > Status post lumbar decompressive laminectomy and fusion. Back pain. Disc degeneration. Scoliosis. Facet degenerative joint disease. <b>PLAN:</b> It is my recommendation the patient continue on meloxicam and Tylenol. She will advance home exercises. We will see her back in the office on a p.r.n. basis. FPC/ 06/16/2024 Arthrodesis status (ICD-10 - Z98.1) <b>IMPRESSION:</b > S/P LDL's and fusion Scoliosis Back pain <b>PLAN:</b> It is my recommendation that the patient start on Mobic 15 mg daily and Tylenol up to 3,000 mg daily. She will continue with her home exercises. She was strongly encouraged to join exercise classes, such as Silver[employer]ne[employer]. She will follow-up in 6 weeks. FPC/clm 07/24/2024 Other low back pain (ICD-10 - M54.59) <b>IMPRESSION:</b > Status post lumbar decompressive laminectomy and fusion. Back pain. Disc degeneration. Scoliosis. Facet degenerative joint disease. <b>PLAN:</b> It is my recommendation the patient continue on meloxicam and Tylenol. She will advance home exercises. We will see her back in the office on a p.r.n. basis. FPC/cp PLAN OF TREATMENT Pending Test Test Name Order Date CBC With Differential/Platelet PT AND PTT 03/02/2024 Vitamin D, 25-Hydroxy 03/02/2024 Chem-Comprehensive 03/02/2024 Insurance Providers Payer Name Payer Address Payer Phone Subscriber Number Group Number Insured Name Patient Relationship to Insured Coverage Start Date Coverage End Date [employer] NEEDS REFERRAL [address] [place] [address] [id number] [facility] [place] Self - patient is the insured MEDICAL (GENERAL) HISTORY Medical History History ICD Code Hypertension Back pain Radiculopathy Denies h/o emotional/psychiatric disorde r Denies h/o drug/chemical dependency Surgical History Surgery Date(Month/Year) Partial left knee replacement 2019 Hysterectomy 2001 Right TSR about 4-5 years ago L2-4 LDL's, L4-5 wide decomp, L4-5 TLIF 03/2024
--- OUTSIDE RECORDS SUMMARY | 2025-05-28 10:30 | XMS_ITS | Encounter Summary ---
Author Organization [facility] Address [address] [place] [address] Care Team Providers Care Green Energy Marketing Analyst Name Role Phone Unavailable Primary Care Provider Unavailabl e Encounter Details Date Type Department Care Team (Late st Contact Info) Description 01/11/2025 Lab Requisition [facility] - DermPath Lab [address] [facility], [facility] [address] Tari Sharpe MD [address] [facility] [address] [place] [address] Social History Tobacco Use Types Packs/Day Years Used Date Smoking Tobacco: Never Assessed Comments Unknown Sex and Gender Information Value Date Recorded Sex Assigned at Not on file 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 Gender Identity Not on file Sexual Orientation Not on file documented as of this encounter Plan of Treatment Not on file documented as of this encounter Procedures Procedure Name Priority Date/Time Associated Diagnosis Comments DERMATOPATHOLOGY Routine 01/11/2025 9:38 AM CDT documented in this encounter Results * DERMATOPATHOLOGY (01/11/2025 9:38 AM CDT) Case Report Dermatopathology Report Case: [id number] Authorizing Provider: Tari Sharpe MD Collected: 01/11/2025 09:38 AM Ordering Location: [facility] - Received: 01/12/2025 10:03 AM DermPath Lab Pathologist: Lilly Slaughter MD Specimens: A) - Skin, left post arm B) - Skin, left back 12:28 PM CDT DERMATOPATHOLOGY LABORATORY Final Diagnosis Specimen A. SKIN, left post arm: LICHEN PLANUS-LIKE KERATOSIS (BENIGN LICHENOID KERATOSIS) (L82.1) Specimen B. 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 The specimen consists of a shave biopsy measuring 37b95d8 mm. Jar 0. Specimen B: Received is one formalin filled container labeled with the patient's name and designated left back. The specimen consists of a shave biopsy measuring 6x6x1 mm. Jar 0. 12:28 PM CDT DERMATOPATHOLOGY LABORATORY Microscopic Description Specimen A. SKIN, left post arm: The epidermis is mildly acanthotic. There is a lichenoid infiltrate with vacuolar changes of basilar keratinocytes and scattered necrotic keratinocytes. Specimen B. SKIN, left back: Sections show acantholysis, dyskeratosis, and an inflammatory cell infiltrate. The epidermis is focally eroded. COMMENT: In the correct clinical setting these histological findings can be seen in transient acantholytic dermatosis (Dipak's disease). 12:28 PM CDT DERMATOPATHOLOGY LABORATORY Disclaimer An external and internal positive and negative controls are appropriate for the histochemical, immunohistochemical and immunofluorescence stain(s) in this case (if any), except where stated explicitly. The performance characteristics of the stain(s) cited in this report were developed and its performance characteristic determined by the Dermatopathology Laboratory at [facility], directed by Dr. Miriam Agudelo. These tests need not be, and therefore are not, approved by the [place] Food and Drug Administration. The tests are used for clinical purposes. Billing Codes Specimen Charges Stain Charges 77227 72908 1 1 12:28 PM CDT DERMATOPATHOLOGY LABORATORY Embedded Images 12:28 PM CDT DERMATOPATHOLOGY LABORATORY Pathology/Cytology TISSUE SPECIMEN FROM SKIN / Unknown 01/11/2025 9:38 AM CDT 01/12/2025 10:03 AM CDT Miscellaneous samples (specimen) TISSUE SPECIMEN FROM SKIN / Unknown 01/11/2025 9:38 AM CDT 01/12/2025 10:03 AM CDT us Tari Sharpe MD LAB - PATHOLOGY/CYTOLOGY ORD ERABLES Final Result DERMATOPATHOLOGY LABORATORY [facility] - Department of Dermatology [facility] [address] [place] [address], [address] [phone] documented in this encounter Visit Diagnoses Not on filedocumented in this encounter
--- OUTSIDE RECORDS SUMMARY | 2025-05-28 10:30 | XMS_ITS | Encounter Summary ---
Author Organization [facility] Address [address] [place] [address] Care Team Providers Care Radiation Physicist Name Role Phone Ez Rosales MD Primary Care Provider [phone] Encounter Details Date Type Department Care Team (Latest Contact Info) Description 01/18/2003 Outpatient [facility] [address] [place] [address] & [place] [address] Yaritza Combs Jr., MD NO ADDRESS ON FILE SCREENING MAMM-MAILG NEOPL-OTHER (Primary Dx) Social History Tobacco Use Types Packs/Day Years Used Date Smoking Tobacco: Never Assessed Comments Unknown Sex and Gender Information Value Date Recorded Sex Assigned at Not on file 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
--- OUTSIDE RECORDS SUMMARY | 2025-05-28 10:31 | XMS_ITS | Encounter Summary ---
Author Organization [facility] Address [address] [place] [address] Care Team Providers Care Lead Housekeeper Name Role Phone Unavailable Primary Care Provider Unavailabl e Encounter Details Date Type Department Care Team (Late st Contact Info) Description 05/14/2020 Lab Requisition [facility] [address] [facility] [place] [id number] Tari Sharpe MD [address] 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 Gender Identity Not on file Sexual Orientation Not on file documented as of this encounter Plan of Treatment Not on file documented as of this encounter Procedures Procedure Name Priority Date/Time Associated Diagnosis Comments DERMATOPATHOLOGY Routine 05/13/2020 12:0 0 AM CDT documented in this encounter Results * DERMATOPATHOLOGY (05/13/2020 12:00 AM CDT) Case Report Dermatopathology Report Case: [id number] Authorizing Provider: Tari Sharpe MD Collected: 05/13/2020 12:00 AM Ordering Location: [facility] Received: 05/14/2020 07:16 AM Pathologist: Lilly Slaughter MD Specimen: Skin, left forearm 0 1:20 PM CDT DERMATOPATHOLOGY LABORATORY Final Diagnosis Specimen A. SKIN, left forearm: ACTINIC KERATOSIS, LICHENOID (L57.0) 0 1:20 PM CDT DERMATOPATHOLOGY LABORATORY at 1320 CDT Clinical History R/O BCC vs LPLK; pink papule. 0 1:20 PM CDT DERMATOPATHOLOGY LABORATORY Gross Description Specimen A: Received is one formalin filled container labeled with the patient's name and designated left forearm. The specimen consists of a shave measuring [id number]. Jar 0. 0 1:20 PM CDT DERMATOPATHOLOGY LABORATORY Microscopic Description Specimen A. SKIN, left forearm: There is focal parakeratosis. The lower half of the epidermis shows disorderly maturation of keratinocytes with nuclear pleomorphism. The dermis shows a band-like, chronic inflammatory infiltrate with occasional apoptotic keratinocytes and some basal vacuolar alteration. 0 1:20 PM CDT DERMATOPATHOLOGY LABORATORY Disclaimer An external and internal positive and negative controls are appropriate for the histochemical, immunohistochemical and immunofluorescence stain(s) in this case (if any), except where stated explicitly. The performance characteristics of the stain(s) cited in this report were developed and its performance characteristic determined by the Dermatopathology Laboratory at [facility], directed by Dr. Miriam Agudelo. These tests need not be, and therefore are not, approved by the [place] Food and Drug Administration. The tests are used for clinical purposes. Billing Codes Specimen Charges Stain Charges 12587 1 0 1:20 PM CDT DERMATOPATHOLOGY LABORATORY Embedded Images 0 1:20 PM CDT DERMATOPATHOLOGY LABORATORY Pathology/Cytolog y TISSUE SPECIMEN FROM SKIN / Unknown 05/13/2020 05/14/2020 7:16 AM CDT us Tari Sharpe MD LAB - PATHOLOGY/CYTOLOGY ORD ERABLES Final Result DERMATOPATHOLOGY LABORATORY [facility] - Department of Dermatology [address], [address] [phone] documented in this encounter Visit Diagnoses Not on filedocumented in this encounter
--- OUTSIDE RECORDS SUMMARY | 2025-05-28 10:31 | XMS_ITS | Clinical Summary ---
Author Organization [facility] Address [address] [place] [address] Care Team Providers Care Bulb Packer Name Role Phone Unavailable Primary Care Provider Unavailabl e Source Comments [facility],non-owned Affiliates and Associated Physician Practices is amultiple site organization consisting of ambulatory clinics and hospital sitesin [place], [place], [place] and [place]. This disclosure is being madepursuant to the Care Everywhere program and may not contain all information available regarding this patient. 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 Gender Identity Not on file Sexual Orientation Not on file Plan of Treatment Health Maintenance Due Date Last Done Comments BONE DENSITY TESTING 1945 MEDICARE AWV 12 MONTHS 1945 HEPATITIS C SCREENING 05/13/1964 DTAP/TDAP/TD VACCINES (1 - Tdap) 1965 PNEUMOCOCCAL VACCINE 50+ (1 of 1 - PCV) 1996 ZOSTER VACCINE (1 of 2) 1996 Respiratory Syncytial Virus (RSV) Vaccine Pt: or over 60 yrs (1 - 1-dose 75+ series) 2021 DEPRESSION SCREENING 07/26/2024 COVID-19 VACCINE ( - 2023-2 5 season) 2025 INFLUENZA VACCINE (#1) 2025 HEPATITIS B VACCINE Aged Out No longe r eligible based on patient's age to complete this topic HIB VACCINE Aged Out No longer eligi ble based on patient's age to complete this topic HPV VACCINE Aged Out No longer eligi ble based on patient's age to complete this topic MENINGOCOCCAL (Group B) VACC INE SHARED DECISION-MAKING Aged Out No longer eligibl e based on patient's age to complete this topic MENINGOCOCCAL GROUPS A/C/Y/W VACCINE Aged Out No longer eligible b ased on patient's age to complete this topic Insurance [facility] MEDICARE [employer]
--- OUTSIDE RECORDS SUMMARY | 2025-05-28 10:31 | XMS_ITS | Encounter Summary ---
Author Organization [facility] Address [address] [place] [address] Care Team Providers Care Retail Supervisor Name Role Phone Unavailable Primary Care Provider Unavailabl e Encounter Details Date Type Department Care Team (Late st Contact Info) Description 01/10/2024 Lab Requisition [facility] [address] [facility] [facility] [place] [id number] Tari Sharpe MD [address] [facility] [address] [place] [address] Social History Tobacco Use Types Packs/Day Years Used Date Smoking Tobacco: Never Assessed Comments Unknown Sex and Gender Information Value Date Recorded Sex Assigned at Not on file 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 Gender Identity Not on file Sexual Orientation Not on file documented as of this encounter Plan of Treatment Not on file documented as of this encounter Procedures Procedure Name Priority Date/Time Associated Diagnosis Comments DERMATOPATHOLOGY Routine 01/10/2024 9:53 AM CDT documented in this encounter Results * DERMATOPATHOLOGY (01/10/2024 9:53 AM CDT) Case Report Dermatopathology Report Case: [id number] Authorizing Provider: Tari Sharpe MD Collected: 01/10/2024 09:53 AM Ordering Location: [facility] - Received: 01/11/2024 06:37 AM DermPath Lab Pathologist: Lilly Slaughter MD Specimen: Skin, right back 4 5:19 PM CDT DERMATOPATHOLOGY LABORATORY Final Diagnosis Specimen A. 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 Nevus; [place] Papule 4 5:19 PM CDT DERMATOPATHOLOGY LABORATORY Gross Description Specimen A: Received is one formalin filled container labeled with the patient's name and designated right back. The specimen consists of a shave biopsy measuring 6x6x2 mm. Jar 0. 4 5:19 PM CDT DERMATOPATHOLOGY LABORATORY Microscopic Description Specimen A. SKIN, right back: Within the dermis, there is a tumor composed of multiple nests of basaloid cells. Small keratinous cysts are present. There is focal mucin. CK20 highlights few scattered cells in the proliferation.Bcl2 is patchy positive in the proliferation. This lesion is not present at the sampled margin of the specimen. 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 As the tumor is not present at the sampled margin, clinical monitoring is recommended. 4 5:19 PM CDT DERMATOPATHOLOGY LABORATORY Disclaimer An external and internal positive and negative controls are appropriate for the histochemical, immunohistochemical and immunofluorescence stain(s) in this case (if any), except where stated explicitly. The performance characteristics of the stain(s) cited in this report were developed and its performance characteristic determined by the Dermatopathology Laboratory at [facility], directed by Dr. Miriam Agudelo. These tests need not be, and therefore are not, approved by the [place] Food and Drug Administration. The tests are used for clinical purposes. Billing Codes Specimen Charges Stain Charges 02591 1 31422 03161 1 1 4 5:19 PM CDT DERMATOPATHOLOGY LABORATORY Embedded Images 4 5:19 PM CDT DERMATOPATHOLOGY LABORATORY Pathology/Cytolo gy TISSUE SPECIMEN FROM SKIN / Unknown 01/10/2024 9:53 AM CDT 01/11/2024 6:37 AM CDT us Tari Sharpe MD LAB - PATHOLOGY/CYTOLOGY ORD ERABLES Final Result DERMATOPATHOLOGY LABORATORY [facility] - Department of Dermatology [address], [address] Floor [place], [place] [id number] [place] [address] documented in this encounter Visit Diagnoses Not on filedocumented in this encounter
[2025-05-28] MEDS: PERFLUTREN LIPID MICROSPHERES 1.5 ML VIAL DILUTED TO 10 ML TOTAL VOLUME IV PUSH (11:00)
--- NOTE | 2025-05-28 11:26 | IVDEFINITY ---
Prior to administration of IV Definity the patient was educated on the risks and benefits of the imaging enhancing agent including potential adverse side effects. The patient verbalized understanding. Allergies were verified. No exclusion criteria were identified and at least one of the following inclusion criteria were met: 1) physician request, 2) patient technically difficult to image (per the [place] [employer] Echocardi[employer] guidelines of two or more segments not discernable within the apical view), or 3) questionable left ventricular function. ?
== END 2025-05-28 09:40 | disposition home or self-care (01) ==
PROVIDERS: PCP Family Medicine
DX: R01.1 Cardiac murmur, unspecified (principal)
CPT/HCPCS: 96375; C8929; Q9957